=== PATIENT | male | born 1960 | race Caucasian/White ===

== ENCOUNTER → 2016-07-09 | Outpatient (CLI) | payer BC ==
[~2016-07-09] MED LIST: CATHETER FLUSH 10 ML SYR IV PRN
--- NOTE | 2016-07-09 12:07 | Diagnostic Imaging Report ---
EXAMINATION: HIDA with EF measurements Indication: Abdominal pain TECHNIQUE: After the intravenous administration of 5.5 mCi of Tc 99m Choletec, imaging over the abdomen was obtained. This was followed by administration of Ensure orally to stimulate intrinsic CCK secretion, followed by continued imaging with ejection fraction measured. FINDINGS: There is homogeneous uptake in the liver with prompt bile duct and gallbladder filling seen. Bowel activity is seen at 65 minutes. Based on further imaging and gallbladder area of interest activity measurements after the administration of Ensure, the gallbladder ejection fraction is estimated at 43%. IMPRESSION: 1. Normal hepatobiliary uptake and Gallbladder filling. 2. Borderline gallbladder ejection fraction. Correlate clinically. Dictated by: Dictated on workstation # [id number]
== END ==
LOC: CARD 09:34
PROVIDERS: ATTEND Nurse Practitioner Family
DX: R11.2 Nausea with vomiting, unspecified (principal)
CPT/HCPCS: 78227

== ENCOUNTER → 2021-09-11 | Outpatient (CLI) | payer BC ==
[~2021-09-11] MED LIST changes: -CATHETER FLUSH 10 ML SYR IV PRN; +RT-ALBUTEROL SULF 2.5 MG/3 ML PRE-MIX VIAL INH ONE
--- NOTE | 2021-09-11 13:04 | Diagnostic Imaging Report ---
INDICATION: COPD. TIME OF EXAM: 12:25 PM No prior studies are available for comparison. FINDINGS: Heart size is normal. There is some circumscribed rounded densities in the left base which appear to be anteriorly located on the lateral view may represent granulomas. No infiltrates are seen. There is no effusion or pneumothorax. IMPRESSION: No acute cardiopulmonary process is detected. Dictated by: Dictated on workstation # [id number]
== END ==
LOC: RT 12:10
PROVIDERS: ATTEND Internal Medicine Critical Care Medicine
DX: J44.9 Chronic obstructive pulmonary disease, unspecified (principal)
CPT/HCPCS: 71046; 94060; 94621; 94726; 94729